=== PATIENT | female | born 1980 | race Caucasian/White ===

== ENCOUNTER 2017-01-13 10:53 | Day surgery (SDC) | payer OTHER ==
--- NOTE | 2017-01-12 17:05 | PREOPHP ---
DATE OF ADMISSION: 01/13/2017 REASON FOR ADMISSION: She is to be admitted tomorrow for laparoscopic right ovarian cystectomy, pos sible laparotomy if necessary. CHIEF COMPLAINT: Chronic pelvic pain, history of recurrent ovarian cysts. HISTORY OF PRESENT ILLNESS: This is a 36-year-old female, [place]ip[place], whose last menstrual period st arted on 12/25/2016. She had been complaining for a period of several years of chronic pelvic pain. She was found to have recently a right ovarian cyst. This was confirmed by an ultrasound done topankaj cohen. This cyst measures 3.5 cm and is painful to palpation. She is admitted for a laparoscopic righ t ovarian cystectomy. The alternatives, benefits, risks, and possible complications of the procedur e were discussed with the patient in detail in the office. She was allowed to ask questions, and beka bean her questions were answered to her satisfaction. She signed the appropriate surgical informed con sent. PAST MEDICAL HISTORY: The patient denies any medical problems including cardiac disease, diabetes, renal disease, liver disease, neurological disease, or thyroid problems. ALLERGIES: NO KNOWN ALLERGIES. MEDICATIONS: She takes no medications on a regular basis. She has used control pills in orde r to eliminate the cysts but to no avail. FAMILY HISTORY: Noncontributory. REVIEW OF SYSTEMS: A 12-point review of systems is noncontributory. PHYSICAL EXAMINATION: GENERAL: Well-developed and nourished, in no distress, alert and oriented x3. Height is 5 feet, an d weight is 112 pounds. BMI is 21. VITAL SIGNS: Showed temperature to be 98, blood pressure is 98/64, pulse is 60 per minute, respirat ions 16 per minute. HEENT: Within normal limits. Pupils are PERRLA. NECK: Supple. The thyroid is nonpalpable. Lymph nodes are nonpalpable. BREASTS: No masses or lumps. Nipples are normal. LUNGS: Clear to percussion and auscultation. HEART: Revealed normal sinus rhythm without a murmur. ABDOMEN: Soft. There are no organomegalies or hernias. PELVIC: Vulva is normal. Vagina is normal. The patient is not sexually active. Uterus is small. No adnexal masses except for a cystic structure on the right side. EXTREMITIES: Within normal limits. NEUROLOGIC: Also normal. IMPRESSION: Right ovarian cyst. PLAN: She is to be admitted tomorrow, 01/13/2017. Dictated By: KATHIE VANCE/GA Conf#: [id number] DID#: [id number]
[2017-01-13] VITALS (19 sets, daily range): BP systolic 95–111; BP diastolic 57–89; PULSE 52–86; RESP 14–24; Ht 152.4 cm; Wt 48.8 kg
[~2017-01-13] VITALS: Ht 152.4 cm; Wt 48.8 kg
[2017-01-13] MEDS ORDERED: FENTAnyl 50 MCG/ML VIAL ONE (13:16)
[2017-01-13] MEDS ORDERED: ROCURONIUM 50 MG INJ ONE (13:35)
[2017-01-13] MEDS ORDERED: ROPIVACAINE 0.5 % 30 ML VIAL ONE (13:35)
[2017-01-13] MEDS ORDERED: NEOSTIGMINE 3 MG/3 ML SYRINGE ONE (13:35)
[2017-01-13] MEDS ORDERED: LIDOCAINE 2% (SDV) 5 ML INJ ONE (13:35)
[2017-01-13] MEDS ORDERED: PROPOFOL 100 ML ONE (13:35)
[2017-01-13] MEDS ORDERED: CEFAZOLIN 1 GM INJ ONE (13:35)
[2017-01-13] MEDS ORDERED: GLYCOPYRROLATE 1 MG INJ ONE (13:35)
[2017-01-13] MEDS ORDERED: SUCCINYLCHOLINE CHLORIDE 100 MG/5 ML SYG IV ONE (13:35)
[2017-01-13] MEDS ORDERED: DIPHENHYDRAMINE 50 MG INJ IV PRN (14:00)
[2017-01-13] MEDS ORDERED: FENTAnyl 50 MCG/ML VIAL IV PRN ×2 (14:00)
[2017-01-13] MEDS ORDERED: ONDANSETRON 4 MG INJ IV PRN ×2 (14:00→15:00)
[2017-01-13] MEDS ORDERED: HYDROmorphONE (0.2 MG/ML) 10ML SYG IV PRN ×2 (14:00)
[2017-01-13] MEDS ORDERED: MEPERIDINE 25 MG INJ IV PRN (14:00)
--- NOTE | 2017-01-13 14:41 | PD.PPDC ---
LICENSED OCCUPATIONAL THERAPIST Discharge Instruction Diagnosis Final Diagnosis: Endometriosis.Endmet. cyst,right ovary Condition Patient Condition: Good Diet Diet: Resume Regular Diet Activity/Restrictions Activity: Normal Activity May Shower Restrictions: No Lifting No Driving Minimize Walking Wound/Drain Care Instructions Wound/Drain Care Instructions: Wash with soap and water Keep clean and dry Follow-up Follow-up with Physician: 1, Week/Weeks Return to clinic for [facility]WARD[facility] Instructions: Fever greater than 101 Worsening abdominal pain More than 2 pads per hour Unable to tolerate diet Surgical Instructions: Incisional Drainage Incisional Redness KATHIE RICHARDSON MD Jan 13, 2017 14:40
[2017-01-13] MEDS ORDERED: LACTATED RINGER'S 1,000 ML IV SCH (14:43)
[2017-01-13] MEDS ORDERED: IBUPROFEN 600 MG TAB PO PRN (15:00)
[2017-01-13] MEDS ORDERED: OXYCODONE/ACETAMINOPHEN (5/325) TAB PO PRN ×2 (15:00)
[2017-01-13] MEDS ORDERED: ACETAMINOPHEN 325 MG TAB PO PRN (15:00)
[2017-01-13] MEDS ORDERED: morphine 2 MG INJ IV PRN (15:00)
--- NOTE | 2017-01-13 15:21 | OPR ---
DATE OF OPERATION: 01/13/2017 PREOPERATIVE DIAGNOSES: 1. Right ovarian cyst. 2. Chronic pelvic pain. POSTOPERATIVE DIAGNOSES: 1. Right ovarian cyst. 2. Chronic pelvic pain. OPERATION PERFORMED: Endometriosis and right ovarian endometrioid cyst. PROCEDURE: Laparoscopic right ovarian cystectomy and fulgurations of several implants, endometriosis in the cul-de-sac of Issac. SURGEON: Kathie Azar MD. ANESTHESIA: General and regional by Dr. Singh. ESTIMATED BLOOD LOSS: Negligible. SPECIMENS: The cyst was sent to pathology. PROCEDURE AND FINDINGS: With the patient under general anesthesia with endotracheal intubation, she was laid on the table in the dorsal lithotomy position. Her abdomen and upper thighs were prepped with ChloraPrep and her vagina and perineum with Betadine. Bladder was catheterized and emptied. After 3 minutes, she was draped in the usual sterile fashion for this procedure. A small incision was done at the umbilicus and a Veress needle was inserted while we were tenting up the anterior abdominal wall. Once the tip of the needle was ascertained to be intraperitoneal by the hanging drop of saline technique, it was connected to the CO2 insufflator. Good pneumoperitoneum was obtained. The needle was removed and a 5 mm trocar was passed in. Through this port now the laparoscope with the endocamera was inserted. The patient was placed in Trendelenburg position. Two more incisions were done with 2 trocars in the right and left lower quadrants under direct vision with 5 mm trocars without any problems. A moderate degree of endometriosis was found. In the cul-de-sac of Issac there were several implants, particularly on the right side. The left side as well as the left adnexa were normal. The right ovary had an old endometrioma of about 3.5 cm, a smaller one of a few millimeters, both adherent to the posterior leaf of the broad ligament. The ovary was slowly dissected away from the posterior leaf of the broad ligament. Then, the ovary was opened over the cyst and cauterized with a gyrus. This rendered chocolate fluid. The cyst was then removed from the body of the ovary. It was sent to pathology. The incision in the ovary was checked for bleeders and there were practically none. The endometrial implants in the cul- de-sac of Issac were cauterized with the gyrus. The pelvis was thoroughly washed with warm saline and this was suctioned out several times. There was no bleeding anywhere. Pictures were taken for documentation. All the instruments were then removed from the patient's abdomen as well as much CO2 as was possible. The incisions were closed with 3-0 Monocryl and Band-Aids were applied. Then, the anesthesiologist performed under general anesthesia a local block of the abdominal muscles bilaterally. The patient withstood the procedure well and was taken to recovery room with all vital signs stable. Needle, sponge and instrument count at the end of the procedure was correct twice. Dictated By: KATHIE VANCE/GA Conf#: [id number] DID#: [id number]
[2017-01-13] MEDS: HYDROmorphONE (0.2 MG/ML) 10ML SYG IV PRN ×3 (15:29→16:09)
== END 2017-01-13 17:20 | disposition home or self-care (01) ==
LOC: SDS 10:53
PROVIDERS: ATTEND Specialist
DX: N83.291 Other ovarian cyst, right side (principal)
CPT/HCPCS: 58662; 84703; 88304; J0690; J1170; J2710; J3010; J7999; Z7512; Z7610; J2795